=== PATIENT | female | born 1945 | race Caucasian/White ===

== ENCOUNTER 2017-01-10 15:39 | Inpatient (IN) | payer MEDICARE, OTHER ==
--- NOTE | ~2017-01-10 | EKG ---
PATIENT: FELIPE FREEDMAN UNIT #: [id number] Ventricular Rate: 113 BPM Atrial Rate: 127 BPM QRS Duration: 86 ms Q-T Interval: 326 ms QTC Calculation(Bezet): 447 ms Calculated R Brilliant: 90 degrees Calculated T Brilliant: -57 degrees Diagnosis Line: Atrial fibrillation with rapid ventricular Diagnosis Line: response with premature ventricular or aberrantly Diagnosis Line: conducted complexes Diagnosis Line: Rightward axis Diagnosis Line: ST and T wave abnormality, consider inferior Diagnosis Line: ischemia Diagnosis Line: Abnormal ECG Diagnosis Line: When compared with ECG of 16-DEC-2013 00:18, Diagnosis Line: (unconfirmed) Diagnosis Line: Atrial fibrillation has replaced Sinus rhythm Diagnosis Line: Vent. rate has increased BY 50 BPM Diagnosis Line: ST now depressed in Inferior leads Diagnosis Line: ST now depressed in Anterolateral leads Diagnosis Line: T wave inversion now evident in Inferior leads Diagnosis Line: Confirmed by TAM FUNG MD ([id number]) on 01/11/2017 Diagnosis Line: 5:41:10 PM INTERPRETING MD: ANTONIETA GUNDERSON
--- NOTE | ~2017-01-10 | HP ---
Unit #: [id number] #: [id number] Patient: FELIPE BRIGGS [id number] [facility]. [place], [place] [address] [id number] MR#: [id number] NAME: FELIPE BRIGGS. ROOM: Age: 71 Sex: F Admission Date: 01/10/2017 : 1945 Attending Physician: Abimael Esteves M.D. Primary Care Physician: Basilia Pichardo M.D. HISTORY AND PHYSICAL HISTORY OF PRESENT ILLNESS Ms. Briggs is a 71-year-old white female who presented to the emergency room because of an episode of rapid palpitation. She has a known history of supraventricular tachycardia. She had been told by her park services specialist if it lasted more than 20 minutes to come to the emergency room. Here in the emergency room she had lab work done which revealed a sodium of 125, potassium of 3.6, magnesium of 1.3. Cardiac enzymes were negative. White count was 8000 and hematocrit was 43.6, platelet count was normal. She relays that she had lab work done in Dr. Pichardo's office a week or so ago and her sodium was low. She was told to decrease her free water intake which she did and she went back and had her sodium rechecked, I believe yesterday, and results are pending. Chest x-ray here in the hospital reveals what appears to be a new left upper lobe density on her chest x-ray. She does have a history of breast cancer, status post right mastectomy, followed by Dr. Starkey. She is maintained on tamoxifen. She has not had any nausea, vomiting or diarrhea. She is not on any diuretics. She had no change in her recent medications. PAST MEDICAL HISTORY 1. Has some history of COPD with an FEV1 of 1.9 L back in [address] Katz's note. 2. History of hypothyroidism, on replacement. 3. History of hypercholesterolemia. 4. Breast cancer. PAST SURGICAL HISTORY 1. She has had right mastectomy. 2. Fibroid tumor removed for her uterus. 3. Some sort of neck surgery. 4. Pin in her great toe. HOME MEDICATIONS Aspirin, tamoxifen, lisinopril, Coreg, simvastatin and levothyroxine. ALLERGIES Flagyl, Cipro, FSH. SOCIAL HISTORY She currently smokes about a pack of cigarettes a week. Prior to eight years ago she smoked a pack a day and had since she was a teenager, having accumulated probably a [id number] history of smoking. No alcohol or illicit drugs. Unit #: [id number] #: [id number] Patient: FELIPE BRIGGS FAMILY HISTORY Negative for lung disease. REVIEW OF SYMPTOMS CONSTITUTIONAL: No fevers or chills. HEENT: No rhinorrhea or nasal congestion. PULMONARY: Not really much in the way of shortness of breath. CARDIAC: No chest pain. No hemoptysis. GASTROINTESTINAL: No nausea or vomiting. Loose stool this morning. GENITOURINARY: No hematuria or dysuria. ENDOCRINE: No polyuria or polydipsia. Does have a history of hypothyroidism. NEUROLOGIC: No unilateral weakness or numbness. SKIN: No rash. MUSCULOSKELETAL: No swollen joints. SKIN: No rash. PHYSICAL EXAMINATION GENERAL: White female in no distress. VITAL SIGNS: Blood pressure is 104/71. Pulse 61. Respiratory rate 15. Afebrile. HEENT: Normocephalic and atraumatic. Pupils equal, round and reactive. Sclerae anicteric. Nasal passages patent. Posterior pharynx crowded. Mallampati IV. NECK: Neck is supple. Trachea midline. No cervical or supraclavicular lymphadenopathy. LUNGS: Lungs are clear to auscultation and percussion. CARDIAC: Regular rate and rhythm. Could not appreciate murmur, rub or gallop. ABDOMEN: Nontender, bowel sounds present, no hepatosplenomegaly. EXTREMITIES: Without cyanosis, clubbing or edema. NEUROLOGIC: Awake and oriented x3. Cranial nerves intact. Muscle strength symmetric bilaterally. SKIN: Warm and dry. PSYCHIATRIC: Affect calm. IMPRESSION 1. Atrial fibrillation with rapid ventricular response. 2. Hyponatremia and hypomagnesemia. 3. Left upper lobe nodule. 4. History of breast cancer, status post mastectomy. 5. Hypothyroidism. 6. Tobacco abuse with some degree of chronic obstructive pulmonary disease. PLAN 1. She currently has converted back to normal sinus rhythm with a rate of 60. Will have Cardiology see and evaluate. Will rule out MD. 2. Check thyroid function studies. For hyponatremia will check thyroid function studies and urine sodium and osmolality and treat with normal saline. 3. Will replace magnesium. 4. Will evaluate left upper lobe nodule with chest CT without contrast. This could represent a primary lung malignancy or could be related less likely to her breast cancer. Certainly this may also have some bearing on her hyponatremia. 5. We will also student counselor on smoking cessation. 6. Will make further recommendations pending this. Unit #: [id number] #: [id number] Patient: FELIPE BRIGGS Dictated by Farrukh Dorantes M.D. FLAQUITO/rohan TD: 01/10/2017 16:56 JOB #: [id number] HISTORY AND PHYSICAL X Farrukh Dorantes MD X HISTORY AND PHYSICAL
--- NOTE | ~2017-01-10 | CT57 ---
[facility] A Service of [facility] RADIOLOGY TEXT RESULTS PATIENT: FELIPE FREEDMAN LOCATION: [facility] 571-01 : 45 UNIT #: [id number] AGE: [address]: Farrukh Dorantes MD SEX: F ORDER DR: [id number] [facility] [address] [facility]. [place], [place] [address] [id number] I MR#: [id number] #: [id number] NAME: FELIPE FREEDMAN. : 1945 SEX: F STUDY DATE/TIME: 01/10/2017 18:52 UNIT: [facility] ROOM: [facility] STUDY DESCRIPTION: CT Chest Wo Cont Attending Physician: Farrukh Dorantes M.D. Ordering Physician: Farrukh Dorantes M.D. Primary Care Physician: Basilia Pichardo M.D. MEDICAL IMAGING REPORT This report is preliminary unless electronic signature is present EXAM CT chest without contrast, 01/10/2017 HISTORY Cardiac arrhythmia today. Left upper lobe nodule on chest x-ray today. TECHNIQUE This CT exam was performed with one or more of the following radiation dose reduction techniques: automatic exposure control, adjustment of mA and/or kV according to patient size, and iterative reconstruction. FINDINGS CT chest without contrast demonstrates old healed fractures of the anterior left third, fourth and fifth ribs, corresponding to similar findings on chest x-ray earlier today. No airspace infiltrates. Tiny calcified granuloma in the anterior right upper lobe. A 3 mm nodule in the posterior right lower lobe is most likely a tiny granuloma. No pulmonary consolidation. Minimal linear atelectasis or scarring in the lung bases. No pleural effusions. Right mastectomy. No adenopathy. IMPRESSION 1. No acute findings. No active disease. 2. Old healed fractures of the anterior left third, fourth and fifth ribs correspond to similar findings on chest x-ray earlier today. 3. No pulmonary consolidation or effusion. No adenopathy. 4. Incidental tiny calcified granuloma in the anterior right upper lobe and 3 mm nodule in the posterior right lower lobe which is most likely an incidental granuloma. 5. Right mastectomy. Dictated by... [facility] A Service of [facility] RADIOLOGY TEXT RESULTS PATIENT: FELIPE FREEDMAN LOCATION: [facility] 571-01 : [birth year] UNIT #: [id number] AGE: [address]: Farrukh Dorantes MD SEX: F ORDER DR: Sammy Swartz M.D. THIS IS AN ELECTRONICALLY VERIFIED REPORT Sammy Swartz M.D. at 01/11/2017 2:19 PM KATRIN/marie TD: 01/11/2017 03:44 JOB #: [id number] MEDICAL IMAGING REPORT COPY
--- NOTE | ~2017-01-10 | DS ---
Unit #: [id number] #: [id number] Patient: FELIPE FREEDMAN [id number] [place], [place] [address] [id number] I MR#: [id number] NAME: FELIPE FREEDMAN. ROOM: 571 Age: 71 Sex: F Admission Date: 01/10/2017 : 1945 Discharge Date: 01/12/2017 Attending Physician: Farrukh Dorantes M.D. Primary Care Physician: Basilia Pichardo M.D. DISCHARGE SUMMARY DISCHARGE DIAGNOSES 1. Atrial fibrillation with rapid ventricular response, converted back to sinus rhythm. 2. Hyponatremia, resolved. 3. Hypomagnesemia, resolved. 4. No evidence of right upper lobe nodule on CT scan. 5. History of breast cancer, status post mastectomy. 6. Tobacco abuse. 7. Possible some underlying degree of chronic obstructive pulmonary disease with history of smoking. DISCHARGE MEDICATIONS Include Wellbutrin ER 150 mg daily, thyroxine 88 mcg daily, Fosamax 70 mg daily, aspirin 81 mg daily, Cordarone 200 mg b.i.d. for one week then 200 mg daily, Pradaxa 150 mg b.i.d., tamoxifen 20 mg daily, Coreg 12.5 mg b.i.d., Zocor 10 mg daily. HOSPITAL COURSE The patient presented to the emergency room with palpitations and found to be in atrial fibrillation with rapid ventricular response. Chest x-ray suggested a left upper lobe density. Cardiac enzymes were negative. Sodium was markedly diminished at 125, chloride was 90, creatinine was 0.7, magnesium was 1.3. She was admitted to the monitored bed. She converted back to sinus rhythm. She was seen by Dr. Marie and she was started on amiodarone, anticoagulation with Pradaxa. She remained in sinus rhythm and is to be discharged home. She was placed on normal saline with correction of her sodium to 137 the next day. Her urine osmolality was less than 100. Her thyroid function studies revealed a free T4 of 1.66, slightly elevated TSH of 1.43. A CT scan of the chest was done to rule out possible nodular density seen on chest x-ray by Radiology. It revealed no left upper lobe mass, no acute findings, no infiltrate mass or congestion. There was an incidental tiny calcified granuloma in the anterior right upper lobe and a 3 mm nodule in the posterior right lower lobe. There were old healed fractures in the anterior left 3rd, 4th, and 5th ribs, I suspect this is what appeared to be a mass like on the chest x-ray. She can be followed up in our office for pulmonary function test. We did discuss the fact that she had only mild obstructive lung disease with an FEV1 of 1.9 L in 2008. She can follow up for pulmonary function test. She really did not give much of a history of obstructive sleep apnea, but a nocturnal pulse oximetry could be done and if she desaturates it may be worthwhile evaluating her for GLORIA. Unit #: [id number] #: [id number] Patient: TANOFELIPE D Dictated by... Ester Salas/venus TD: 01/12/2017 21:48 JOB #: [id number] Ben Marie M.D. DISCHARGE SUMMARY X Farrukh Dorantes MD X DISCHARGE SUMMARY
--- NOTE | ~2017-01-10 | CR72 ---
[facility] A Service of [facility] RADIOLOGY TEXT RESULTS PATIENT: FELIPE FREEDMAN LOCATION: [facility] 57- : [birth year] UNIT #: [id number] AGE: [address]: Farrukh Dorantes MD SEX: F ORDER DR: [id number] [facility] [address] [facility]. [place], [place] [address] [id number] I MR#: [id number] #: [id number] NAME: FELIPE FREEDMAN. : 1945 SEX: F STUDY DATE/TIME: 01/10/2017 14:53 UNIT: [facility] ROOM: [facility] STUDY DESCRIPTION: CR Chest Single View Portable Attending Physician: Ben Marie M.D. Ordering Physician: Abimael Esteves M.D. Primary Care Physician: Basilia Pichardo M.D. MEDICAL IMAGING REPORT This report is preliminary unless electronic signature is present EXAM Chest x-ray. DATE OF EXAM 01/10/2017 HISTORY 71-year-old female in the ED complaining of shortness of air and irregular heartbeat beginning earlier today. Prior history right mastectomy for breast cancer. TECHNIQUE AP portable upright chest x-ray. FINDINGS Mild stable cardiomegaly. Pulmonary vascularity is normal. The lungs are expanded and clear. No pleural effusion. Right mastectomy. There is an ill-defined nodular opacity superimposed over the left upper lung that was not present on the previous study of 12/16/2013. This could potentially be associated with the left anterior third rib, and calcified formation is noted involving an old fracture of the left anterior fifth rib. Given the history of breast cancer, followup chest CT is recommended for further evaluation. Metastatic pulmonary nodule or bone lesions are not excluded. IMPRESSION 1. Stable mild cardiomegaly. 2. Ill-defined nodular opacity superimposed over the left upper lung, potentially in association with the third rib. Followup chest CT for evaluation of potential pulmonary or skeletal metastatic disease. 3. Right mastectomy. [facility] A Service [facility] RADIOLOGY TEXT RESULTS PATIENT: FELIPE FREEDMAN LOCATION: [facility] 571-01 : [birth year] UNIT #: [id number] AGE: [address]: Farrukh Dorantes MD SEX: F ORDER DR: Dictated by... Harry Walker M.D. THIS IS AN ELECTRONICALLY VERIFIED REPORT Harry Walker M.D. at 01/11/2017 6:28 AM WILLIE/beto TD: 01/10/2017 20:39 JOB #: [id number] MEDICAL IMAGING REPORT COPY
--- NOTE | ~2017-01-10 | CO ---
Unit #: [id number] #: [id number] Patient: FELIPE FREEDMAN [id number] [facility]. [place], [place] [address] [id number] I MR#: [id number] NAME: FELIPE FREEDMAN. ROOM: 571 Age: 71 Sex: F Admission Date: 01/10/2017 : 1945 Attending Physician: Farrukh Dorantes M.D. Primary Care Physician: Basilia Daneil M.D. CONSULTATION REPORT JOB NOTE: CC: DR. FELIPE DANIEL, PCP REASON FOR CONSULTATION Atrial fibrillation with rapid ventricular response. HISTORY OF PRESENT ILLNESS This is a 71-year-old white female, who is known to Dr. Marie, who has a history of hypertension, hyperlipidemia, tachy-clint syndrome, and supraventricular tachycardia. She had a cardiac catheterization in 2007 after a non-ST elevation myocardial infarction where there was evidence of plaque rupture in the circumflex and LAD. Stenosis was up to 50% in all three vessels. She will continue on medical management. The patient presents to the emergency room with complaint of palpitations. She states she had an episode where heart was racing last Sunday. She did maneuver such as cough and bear down and her palpitations terminated. Today, she had another episode, however, the maneuvers did not help. After about a half an hour, she came to the emergency room for evaluation, where she was found to be in atrial fibrillation with rapid ventricular response with a rate of 113 beats per minute. She has since converted to normal sinus rhythm. She has no complaint of chest pain, dizziness, syncope, or near syncope. She states she is reasonably active, where she climbs 15 stairs at least twice a day without symptoms of angina, dyspnea, or palpitations. She walks a mile to [place] when the weather is good. She saw her primary care physician last month and her laboratory values showed low sodium. She has been on a fluid restriction. Her sodium is 125. She was found to have a low magnesium level of 1.3. Troponin is negative with no acute ischemic changes on EKG. PAST MEDICAL HISTORY 1. Cardiac catheterization on 12/24/2007 after a non-ST elevation myocardial infarction with left main normal. Circumflex artery beyond the second marginal branch with an area of haziness with 50% stenosis. LAD also had moderate haziness with 50% proximal stenosis. Both suggestive of plaque rupture. Right coronary artery dominant vessel with long area stenosis of 50% mid vessel. PDA and PLV branches normal. 2. 2D echocardiogram on 09/23/2011 showed an ejection fraction equal to 50% to 55% with mild tricuspid regurgitation. 3. Hypertension. 4. Hyperlipidemia. 5. Supraventricular tachycardia. 6. COPD. 7. Tachy-clint syndrome. 8. Hypothyroidism. Unit #: [id number] #: [id number] Patient: FELIPE FREEDMAN 9. Nicotine abuse. PAST SURGICAL HISTORY 1. Right mastectomy for cancer. 2. Fibroid tumor removed. 3. Removal of neck tumor. 4. Pins in bilateral great toes. SOCIAL HISTORY The patient lives at home alone. She continues to smoke. Previously smoked up to a pack of cigarettes daily. She denies illicit drug or alcohol use. FAMILY HISTORY Negative for coronary artery disease. ALLERGIES Urofollitropin, Flagyl, ciprofloxacin, codeine, and latex. HOME MEDICATIONS Levothyroxine 88 mcg daily, simvastatin 10 mg q.h.s., carvedilol 12.5 mg b.i.d., Prinivil 40 mg daily, tamoxifen 20 mg daily, aspirin 81 mg daily, and Fosamax 70 mg weekly. REVIEW OF SYSTEMS CONSTITUTIONAL: Negative for fever or chills. Reports no weight gain or weight loss. HEENT: No headache, hearing or vision changes, difficulty with swallowing. No dizziness. CARDIOVASCULAR: Has no symptoms of angina. Positive for palpitations. Denies paroxysmal nocturnal dyspnea or orthopnea. No syncope or near syncope. RESPIRATORY: Negative for dyspnea, cough, or hemoptysis. GASTROINTESTINAL: No abdominal pain, nausea, or vomiting. No constipation or melena. EXTREMITIES: Negative for lower extremity edema. PHYSICAL EXAMINATION VITAL SIGNS: Blood pressure 104/71, heart rate 61, temperature 97.8. GENERAL: This is a 71-year-old pleasant elderly white female, who is in no acute distress. NEUROLOGIC: She is awake, alert, and oriented. There are no focal weaknesses. NECK: Trachea is midline. No thyromegaly or lymphadenopathy. No jugular venous distention. HEART: S1 and S2. Heart sounds are normal. No murmurs. No rubs or clicks. Regular rate and rhythm with occasional ectopic beat. ABDOMEN: Soft and nontender with bowel sounds present. LUNGS: Diminished breath sounds without rales, rhonchi, or wheezing. EXTREMITIES: Without leg edema. SKIN: Warm and dry. DIAGNOSTIC STUDIES LABORATORY RESULTS: Hemoglobin 14.8, hematocrit 43.6, platelet count 168, and white count is 8.0. Sodium 125, potassium 3.6, BUN 9, creatinine 0.7, glucose 109, magnesium 1.3. Troponin less than 0.05. IMAGING STUDIES: Chest x-ray shows mild cardiomegaly. No pleural Unit #: [id number] #: [id number] Patient: FELIPE FREEDMAN effusions. Right mastectomy. There is an ill-defined nodule in the left upper lung not present on previous studies. Questionable left anterior third rib nodule involving old fracture at the fifth anterior rib. CARDIOVASCULAR STUDIES: EKG; atrial fibrillation with rapid ventricular response, rate of 113 beats per minute with premature ventricular complex. Rightward axis deviation. IMPRESSION 1. Atrial fibrillation with rapid ventricular response converted to normal sinus rhythm. 2. Severe hyponatremia. 3. Chronic obstructive pulmonary disease. 4. Hypomagnesemia. 5. Left upper lobe nodule. 6. History of breast cancer, status post right mastectomy. 7. Hypothyroidism. 8. Nicotine abuse. 9. Nonobstructive coronary artery disease per cardiac catheterization in 2007. PLAN 1. Cardiology was consulted for atrial fibrillation with rapid ventricular response. The patient has converted to normal sinus rhythm. We will start on amiodarone to maintain normal sinus rhythm. 2. Anticoagulate with Pradaxa. We will retain the patient coughs. She has a CHADS2-VASc score of 4. We will need long-term anticoagulation. 3. Supplement electrolytes. 4. TSH will be checked. 5. We will follow the patient with you. Thank you for allowing us to assist in this patient's care. Dictated by... Modesto Brown A.P.R.N. for Ester Bright/venus TD: 01/11/2017 01:27 JOB #: [id number] CONSULTATION REPORT X Modesto Brown APRN CONSULTATION REPORT
[2017-01-10 14:52] LABS: POC - TROPONIN <0.05 ng/mL (<=0.05)
[2017-01-10 15:01] LABS: BASOPHIL# 0.1 X10e3 (0-0.3); BASOPHIL% 1.1 % (0-2.5); EOSINOPHIL# 0.1 X10e3 (0-0.7); HEMATOCRIT 43.6 % (35.0-45.0); HEMOGLOBIN 14.8 gm/dL (12.0-16.0); LYMPHOCYTE# 1.4 X10e3 (1.0-3.5); LYMPHOCYTE% 17.9 % (17.0-45.0); MEAN CELL VOLUME 97.1 FL (83-96); MEAN CORPUSCULAR HEMOGLOBIN 32.9 PG (28-34); MEAN CORPUSCULAR HGB CONC 33.9 g/dL (30-36); MEAN PLATELET VOLUME 8.4 FL (6.5-11.5); MONOCYTE# 0.4 X10e3 (0-1.0); MONOCYTE% 5.6 % (3.0-12.0); NEUTROPHIL# 5.9 X10e3 (1.5-7.1); NEUTROPHIL% 74.4 % (40-75); PLATELET COUNT 168 X10e3 (140-420)
[2017-01-10 15:16] LABS: DIFF IND NO
[2017-01-10 15:23] LABS: INR 1.1; PARTIAL THROMBOPLASTIN TIME 27.2 SECONDS (23.5-31.3); PROTHROMBIN TIME (PATIENT) 11.4 SECONDS (9.6-11.5)
[2017-01-10 15:30] LABS: ALBUMIN SERUM 4.4 g/dL (3.5-5.0); ALKALINE PHOSPHATASE 39 U/L (32-92); ALT (SGPT) 17 U/L (10-40); AST (SGOT) 28 U/L (10-42); BILIRUBIN, DIRECT 0.2 mg/dL (0.0-0.2); BILIRUBIN,TOTAL 1.2 mg/dL (0.2-2.0); BLOOD UREA NITROGEN 9 mg/dL (9-23); BUN/CREATININE RATIO 12.85; CARBON DIOXIDE 25 mmol/L (22-31); CHLORIDE 90 mmol/L (100-111); CREATININE SERUM 0.7 mg/dL (0.6-1.4); GLOM FILT RATE Estimated ABOVE60 mL/min (>60); GLUCOSE FASTING 109 mg/dL (70-110); MAGNESIUM 1.3 mg/dL (1.6-3.0); POTASSIUM 3.6 mmol/L (3.5-5.1); PROTEIN TOTAL SERUM 7.1 g/dL (6.0-8.3)
[~2017-01-10 15:39] MED LIST: AMIODARONE HCL400 MG PO; ASPIRIN EC81 M1 PO; ASPIRIN81 M1 PO; ASPIRINEC PO; ATELVIA35 MG PO; COREG12.5 MG PO; LEVOTHYROXINE88 MCG PO; LOPRESSOR PO; METOPROLOL TAR25 MG PO; NITROGYLCERIN SUBLINGUAL; NITROSTAT0.4 MG SL; PLAVIX PO; PRINIVIL40 MG PO; SIMVASTATIN20 MG PO; SIMVASTATIN40 MG PO; SYNTHROID PO; TAMOXIFEN CITRA20 MG PO; ZOCOR20 MG PO
[2017-01-10 15:52] LABS: SODIUM 125 mmol/L (135-145)
[2017-01-10 15:59] LABS: THYROID STIMULATING HORMONE 0.82 uIU/ml (0.34-5.60)
[2017-01-10 16:06] LABS: FREE THYROXIN (T4) 1.66 ng/dL (0.58-1.64)
[2017-01-10] MEDS ORDERED: FOSAMAX70 MG PO (17:30)
[2017-01-10 21:13] LABS: SODIUM URINE RANDOM 22 mmol/L
[2017-01-10 21:19] LABS: OSMOLALITY,URINE 92 mOsmo/kg (250-900)
[2017-01-10 22:13] LABS: BLOOD UREA NITROGEN 9 mg/dL (9-23); CALCIUM SERUM 7.6 mg/dL (8.4-10.2); CARBON DIOXIDE 25 mmol/L (22-31); CHLORIDE 96 mmol/L (100-111); CK TOTAL 52 IU/L (26-140); CREATININE SERUM 0.6 mg/dL (0.6-1.4); GLOM FILT RATE Estimated ABOVE60 mL/min (>60); GLUCOSE FASTING 94 mg/dL (70-110); POTASSIUM 4.3 mmol/L (3.5-5.1)
[2017-01-10 22:14] LABS: SODIUM 124 mmol/L (135-145)
[2017-01-11 08:13] LABS: BLOOD UREA NITROGEN 9 mg/dL (9-23); CALCIUM SERUM 7.9 mg/dL (8.4-10.2); CARBON DIOXIDE 24 mmol/L (22-31); CHLORIDE 105 mmol/L (100-111); CREATININE SERUM 0.6 mg/dL (0.6-1.4); GLOM FILT RATE Estimated ABOVE60 mL/min (>60); GLUCOSE FASTING 81 mg/dL (70-110); MAGNESIUM 2.1 mg/dL (1.6-3.0); POTASSIUM 3.9 mmol/L (3.5-5.1)
[2017-01-11 08:16] LABS: SODIUM 137 mmol/L (135-145)
[2017-01-12 06:26] LABS: BLOOD UREA NITROGEN 8 mg/dL (9-23); CALCIUM SERUM 7.8 mg/dL (8.4-10.2); CARBON DIOXIDE 21 mmol/L (22-31); CHLORIDE 110 mmol/L (100-111); CREATININE SERUM 0.4 mg/dL (0.6-1.4); GLOM FILT RATE Estimated ABOVE60 mL/min (>60); GLUCOSE FASTING 82 mg/dL (70-110); POTASSIUM 4.7 mmol/L (3.5-5.1); SODIUM 137 mmol/L (135-145)
[2017-01-12] MEDS ORDERED: AMIODARONE PO ×2 (10:08→10:09)
[2017-01-12] MEDS ORDERED: PRADAXA150 MG PO (10:09)
[2017-01-12] MEDS ORDERED: WELLBUTRIN PO (10:10)
== END 2017-01-12 11:40 | disposition home or self-care (01) | DRG 309 ==
LOC: CED 15:39 → CEDOF 16:37 → C5C 19:48
PROVIDERS: Emergency Medicine; Internal Medicine; Internal Medicine Cardiovascular Disease
DX: I48.91 Unspecified atrial fibrillation (principal); E87.1 Hypo-osmolality and hyponatremia; J44.9 Chronic obstructive pulmonary disease, unspecified; I49.5 Sick sinus syndrome; E83.42 Hypomagnesemia; Z85.3 Personal history of malignant neoplasm of breast; I65.29 Occlusion and stenosis of unspecified carotid artery; I47.1 Supraventricular tachycardia; Z79.82 Long term (current) use of aspirin; F17.200 Nicotine dependence, unspecified, uncomplicated; R91.1 Solitary pulmonary nodule; E03.9 Hypothyroidism, unspecified; E83.51 Hypocalcemia; E87.6 Hypokalemia
CPT/HCPCS: 36415; 71010; 71250; 80048; 80076; 82550; 82553; 83735; 83935; 84300; 84439; 84443; 84484; 85025; 85610; 85730; 93005; 99285; J3475

== ENCOUNTER → 2017-03-01 | Outpatient (CLI) | payer MEDICARE, OTHER ==
[~2017-03-01] MED LIST changes: +AMIODARONE PO; +FOSAMAX70 MG PO; +PRADAXA150 MG PO; +WELLBUTRIN PO
--- NOTE | ~2017-03-01 | MY7 ---
[facility] A Service [facility] RADIOLOGY TEXT RESULTS PATIENT: FELIPE FREEDMAN LOCATION: [facility] : 45 UNIT #: [id number] AGE: [address]: Basilia Pichardo MD SEX: F ORDER DR: [id number] [facility] [address] [facility]. [place], [place] [address] [id number] O MR#: [id number] Acc #: [id number] NAME: FELIPE FREEDMAN : 1945 SEX: F STUDY DATE/TIME: 03/01/2017 14:27 UNIT: [facility] ROOM: STUDY DESCRIPTION: MY Mammogram Dx Dig Lt Attending Physician: Basilia Pichardo M.D. Ordering Physician: Basilia Pichardo M.D. Primary Care Physician: Basilia Pichardo M.D. MEDICAL IMAGING REPORT This report is preliminary unless electronic signature is present EXAM Left diagnostic mammogram. HISTORY Previous left breast cancer and right mastectomy. COMPARISON STUDIES 02/21/2016, 02/08/2015, 02/05/2014 TECHNIQUE MLO, CC, and ML digital views of the left breast were obtained and reviewed with an FDA-approved CAD device. FINDINGS The breast is heterogenously dense. There are no mass or abnormal calcifications. There has been no change. IMPRESSION No change. No evidence of malignancy. Patients over the age of 40 are entered into a reminder system with target due date for the next mammogram. A result letter will also be sent to the patient. BIRADS: 1 Negative Dictated by... Adria York M.D. THIS IS AN ELECTRONICALLY VERIFIED REPORT Adria York M.D. at 03/01/2017 4:37 PM [facility] A Service [facility] RADIOLOGY TEXT RESULTS PATIENT: FELIPE FREEDMAN LOCATION: [facility] : 45 UNIT #: [id number] AGE: [address]: Basilia Pichardo MD SEX: F ORDER DR: RIKA/valerio TD: 03/01/2017 15:59 JOB #: [id number] MEDICAL IMAGING REPORT Page 1 of 1 COPY
== END | disposition home or self-care (01) ==
LOC: CMAM 14:12
DX: Z08 Encounter for follow-up examination after completed treatment for malignant neoplasm (principal); Z85.3 Personal history of malignant neoplasm of breast; Z90.11 Acquired absence of right breast and nipple
CPT/HCPCS: G0206